=== PATIENT | male | born 1990 | race American Indian/Alaskan Native ===

== ENCOUNTER 2017-10-30 02:42 | Emergency (ER) | payer OTHER ==
--- NOTE | 2017-10-30 04:33 | XRay Report ---
FINAL REPORT PROCEDURE: XR CHEST ROUTINE 2V TECHNIQUE: PA and lateral chest radiographs were obtained. CPT 48625 HISTORY: inhaled chemical COMPARISON: No prior studies are available for comparison. FINDINGS: Heart: Normal. Mediastinum/Vessels: Normal. Lungs/Pleural space: Normal. Bony thorax: No acute osseous abnormality. Other: IMPRESSION: Normal examination.
--- NOTE | 2017-10-30 06:33 | Emergency Department Report ---
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 He said it was a very small amount and he spit it out. He denies any shortness of breath, chest pain, fever. He does not have any past medical history. However he now has developed some nausea, vomiting and abdominal pain. He is a tobacco smoker but denies any illicit drug use. He has not had a primary care physician. He did not take anything for her symptoms prior to presentation. ED Past Medical Hx - Past Medical History Previous Medical History?: Yes Hx Hypertension: Yes ([place]) - Surgical History Past Surgical History?: Yes Additional Surgical History: testicular torsion - Social History Smoking Status: Current Every Day Smoker Substance Use Type: None - Medications Home Medications: Home Medications Medication Instructions Recorded Confirmed Last Taken Type Cyclobenzaprine [Flexeril 10mg] 10 mg PO Q8H PRN #20 tablet 11/13/14 Unknown Rx HYDROcodone/APAP 5-325 [[place] 1 each PO Q6HR PRN #12 tablet 11/13/14 Unknown Rx 5-325 mg TAB] Ibuprofen [Motrin 800 MG tab] 800 mg PO Q8H PRN #30 tablet 11/13/14 Unknown Rx ED Review of Systems ROS: Stated complaint: IHHALED BLEECH /FACE AND THROAT IRRITATION Other details as noted in HPI Comment: All other systems reviewed and negative Constitutional: denies: chills, fever Eyes: denies: eye pain, eye discharge, vision change ENT: throat pain. denies: ear pain Respiratory: denies: cough, shortness of breath, wheezing Cardiovascular: denies: chest pain, palpitations Gastrointestinal: abdominal pain. denies: nausea, vomiting Genitourinary: denies: urgency, dysuria Musculoskeletal: denies: back pain, joint swelling, arthralgia Skin: denies: rash, lesions Neurological: denies: headache, weakness, paresthesias Physical Exam - Physical Exam Vital Signs: Vital Signs 10/30/17 02:59 Temperature 97.4 F L Pulse Rate 71 Respiratory 20 Rate Blood Pressure 136/86 O2 Sat by Pulse 99 Oximetry Physical Exam: GENERAL: The patient is well-developed well-nourished. HENT: Normocephalic. Atraumatic. Patient has moist mucous membranes. Oropharynx is clear. EYES: Extraocular motions are intact. Pupils equal reactive to light bilaterally. NECK: Supple. Trachea is midline. CHEST/LUNGS: Clear to auscultation. There is no respiratory distress noted. HEART/CARDIOVASCULAR: Regular. There is no tachycardia. There is no murmur. ABDOMEN: Abdomen is soft. There is some upper abdominal tenderness palpation. No guarding or rebound tenderness. Patient has normal bowel sounds. There is no abdominal distention. SKIN: There is a small amount of skin irritation to the left side of the cheek that could be consistent with chemical dermatitis. NEURO: The patient is awake, alert, and oriented. The patient is cooperative. The patient has no focal neurologic deficits. The patient has normal speech. MUSCULOSKELETAL: There is no tenderness or deformity. There is no limitation range of motion. There is no evidence of acute injury. ED Course Vital Signs 10/30/17 02:59 Temperature 97.4 F L Pulse Rate 71 Respiratory 20 Rate Blood Pressure 136/86 O2 Sat by Pulse 99 Oximetry - Consultations Consultation #1: Poison control was contacted and felt that the small amount of possible bleach ingestion should not have any side effects. If the patient is unable to pass an oral challenge then they would consider admission for endoscopy. However otherwise, the patient should be safe for discharge home and outpatient follow- up. 10/30/17 14:01 ED Medical Decision Making - Lab Data Result diagrams: 10/30/17 06:35 10/30/17 06:35 - Radiology Data Radiology results: report reviewed, image reviewed interpreted by me: Chest x-ray does not show any acute process. There are no pleural effusions, obvious pneumonia and there is no pneumothorax. Abdominal x-ray shows nonspecific nonobstructive bowel gas. CT ABDOMEN PELVIS WITH CONTRAST: HISTORY: abdominal pain. COMPARISON: none. TECHNIQUE: Helical CT in 1.25mm intervals following IV contrast. Sagittal and coronal reconstructions. FINDINGS: Lung bases: Normal. Liver: Normal. Biliary system: Normal. Pancreas: Normal. Spleen: Normal. Kidneys/ureters/bladder: Normal. Adrenal glands: Normal. Aorta: Normal. Intestines: Normal. Appendix: Normal. Pelvic viscera: Normal. Ascites: None. Adenopathy: None. Musculoskeletal: Normal. IMPRESSION: Unremarkable CT scan of the abdomen and pelvis with contrast. Transcribed By: TTR Dictated By: NOEL BROWN JR, MD Electronically Authenticated By: NOEL BROWN JR, MD Signed Date/Time: 10/30/17 1209 - Medical Decision Making The patient does not appear to have any issue with the oral pharynx regarding the bleach. He did not really ingest any and there does not appear to be any inhalational injury. However the patient has developed some nausea, vomiting and upper abdominal discomfort. Labs are unremarkable including normal belly labs such as bilirubin, lipase and LFTs. Chest and abdominal x-rays were unremarkable. The patient was given Zofran, fluid, pain medication and upon reevaluation is feeling improved. Prior to this, he had a CT of the abdomen and pelvis with IV contrast that did not show any acute process or any etiology of the abdominal pain symptoms. He appears safe for discharge home. Vital signs stable. As he requests. He was given referrals for primary care and gastroenterology. He will return to the ER with any worsening of symptoms or any acute distress. Critical Care Time: No Critical care attestation.: If time is entered above; I have spent that time in minutes in the direct care of this critically ill patient, excluding procedure time. ED Disposition Clinical Impression: Accidental exposure to bleach Abdominal pain Qualifiers: Abdominal location: upper abdomen, unspecified Qualified Code(s): R10.10 - Upper abdominal pain, unspecified Nausea & vomiting Qualifiers: Vomiting type: unspecified Vomiting Intractability: non-intractable Qualified Code(s): R11.2 - Nausea with vomiting, unspecified Disposition: DC-01 TO HOME OR SELFCARE Is pt being admited?: No Condition: Stable Instructions: Acute Nausea and Vomiting (ED), Chemical Skin Burn (ED), Abdominal Pain (ED) Additional Instructions: Please follow up with a primary care physician in the next few days. 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 Machado, in case you would like to follow up regarding your abdominal pain. Return to the emergency Department with any worsening of your symptoms or any acute distress. Referrals: DOMINICK POTTS MD [Primary Care Provider] - 3-5 Days BARB MACHADO MD [Staff Physician] - 3-5 Days FLORI JAVED MD [Staff Physician] - 3-5 Days Time of Disposition: 12:55
[2017-10-30 06:58] LABS: Basophils % (Auto) 0.8 % (0.0-1.8); Eosinophils # (Auto) 0.1 K/mm3 (0.0-0.4); Eosinophils % (Auto) 1.4 % (0.0-4.3); Hematocrit 45.5 % (35.5-45.6); Hemoglobin 14.9 gm/dl (11.8-15.2); Lymphocytes # (Auto) 1.9 K/mm3 (1.2-5.4); Lymphocytes % (Auto) 48.1 % (13.4-35.0); Mean Corpuscular HGB Conc 33 % (32-34); Mean Corpuscular Hemoglobin 28 pg (28-32); Mean Corpuscular Volume 86 fl (84-94); Monocytes # (Auto) 0.2 K/mm3 (0.0-0.8); Monocytes % (Auto) 5.6 % (0.0-7.3); Platelet Count 177 K/mm3 (140-440); Red Blood Count 5.27 M/mm3 (3.65-5.03); Red Cell Distribution Width 14.3 % (13.2-15.2)
[2017-10-30 07:30] LABS: Alanine Aminotransferase 34 units/L (7-56); Albumin 4.2 g/dL (3.9-5); BUN/Creatinine Ratio 11; Blood Urea Nitrogen 9 mg/dL (9-20); Calcium 8.7 mg/dL (8.4-10.2); Hemolysis Index 16
[2017-10-30] MEDS ORDERED: NACL 0.9% 1000 ML 1,000 ML IV ONE (09:11)
[2017-10-30] MEDS ORDERED: ZOFRAN IV ONE (09:11)
--- NOTE | 2017-10-30 09:24 | XRay Report ---
ABDOMEN, 2 views: History: Abdominal pain, vomiting. There is no evidence of free air beneath the diaphragms. The gas pattern within the abdomen is unremarkable. There is no evidence of bowel dilatation, significant air-fluid levels, or pathologic calcifications. Organ shadows are unremarkable. IMPRESSION: Unremarkable abdomen.
[2017-10-30] MEDS ORDERED: MORPHINE IV ONE (10:57)
--- NOTE | 2017-10-30 12:15 | Cat Scan Report ---
CT ABDOMEN PELVIS WITH CONTRAST: HISTORY: abdominal pain. COMPARISON: none. TECHNIQUE: Helical CT in 1.25mm intervals following IV contrast. Sagittal and coronal reconstructions. FINDINGS: Lung bases: Normal. Liver: Normal. Biliary system: Normal. Pancreas: Normal. Spleen: Normal. Kidneys/ureters/bladder: Normal. Adrenal glands: Normal. Aorta: Normal. Intestines: Normal. Appendix: Normal. Pelvic viscera: Normal. Ascites: None. Adenopathy: None. Musculoskeletal: Normal. IMPRESSION: Unremarkable CT scan of the abdomen and pelvis with contrast.
[2017-10-30 13:20] VITALS: BP 131/84
== END 2017-10-30 13:29 | disposition home or self-care (01) ==
LOC: ED 02:42
DX: R10.10 Upper abdominal pain, unspecified (principal); R11.2 Nausea with vomiting, unspecified; F17.200 Nicotine dependence, unspecified, uncomplicated
CPT/HCPCS: 36415; 71046; 74019; 74177; 80053; 83690; 85025; 96361; 96374; 96375; 99284; J2270; J2405; J7030; Q9967